=== PATIENT | female | born 1930 | race African-American/Black ===

== ENCOUNTER → 2020-07-11 | Outpatient (CLI) | payer MEDICARE ==
--- NOTE | 2020-07-11 14:21 | RAD ---
CT Abdomen and Pelvis without contrast History: Uterine bleeding Technique: Noncontrast CT imaging was performed of the abdomen and pelvis. Multiplanar images are reviewed. Exposure: One or more of the following individualized dose reduction techniques were utilized for this examination: 1. Automated exposure control 2. Adjustment of the mA and/or kV according to patient size 3. Use of iterative reconstruction technique. Comparison: None Findings: There is right extrarenal pelvis/pelviectasis. There is no renal calculus. There are some phleboliths in the pelvis, no convincing ureteral calculus. There is some linear lower lobe atelectasis at the lung bases bilaterally.Accurate evaluation of abdominal visceral organs is limited without intravenous contrast. There is no obvious abnormality of the spleen, liver, or partially fat replaced pancreas. There is no adrenal nodularity. Gallbladder is present without obvious intraluminal abnormality by CT. Accurate evaluation of bowel is limited without oral contrast. There is no significant free air, free fluid, bowel dilatation. There is scattered moderate diverticulosis of the descending and sigmoid colon. There is some retained stool variably in the colon. Appendix is not confidently identified if still present. There are multiple small nonspecific calcifications of the uterus. 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 There is moderate to severe degenerative disc disease at L1-L2 and L3-4 and to lesser degree at L4-5 and L5-S1. There is multilevel lumbar facet degenerative change, minimal grade 1 anterior spondylolisthesis L4-5. There is degenerative change of the pubic symphysis. Impression: 1. There are multiple small nonspecific uterine calcifications. 2. There is no significant inflammatory type change. There is colonic diverticulosis. 3. 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 There is multilevel lumbar degenerative disc disease. There is multilevel lumbar facet degenerative change, grade 1 anterior spondylolisthesis at L4-5. Electronically signed by: Stuart Angeles MD (07/11/2020 2:18 PM) [facility]
--- NOTE | 2020-07-11 15:46 | RAD ---
EXAMINATION: PELVIS COMPLETE, 07/11/2020 10:00 AM CLINICAL INDICATION: Abnormal vaginal bleeding TECHNIQUE: Grayscale, color and spectral Doppler ultrasound images of the pelvis . COMPARISON: None. FINDINGS: The uterus is not visualized. There is are some echogenic foci with shadowing in the expected region of the uterus. Ovaries are not visualized. Visualized portion of the cervix is unremarkable. No free fluid. IMPRESSION: Uterus not well visualized due to shadowing in the region of the uterus. Ovaries are not visualized. Cross-sectional imaging could be obtained to further evaluate if indicated. Electronically signed by: Naomie Hall MD (07/11/2020 3:43 PM) [id number]
== END ==
LOC: US 09:40
PROVIDERS: ATTEND Specialist
DX: K57.30 Diverticulosis of large intestine without perforation or abscess without bleeding (principal); N93.9 Abnormal uterine and vaginal bleeding, unspecified; J98.11 Atelectasis; M16.12 Unilateral primary osteoarthritis, left hip; M51.36 Other intervertebral disc degeneration, lumbar region; M47.816 Spondylosis without myelopathy or radiculopathy, lumbar region; M43.16 Spondylolisthesis, lumbar region; M19.09 Primary osteoarthritis, other specified site; N85.8 Other specified noninflammatory disorders of uterus
CPT/HCPCS: 74176; 76856

== ENCOUNTER → 2020-10-23 | Outpatient (CLI) | payer MEDICARE ==
--- NOTE | 2020-10-23 16:22 | RAD ---
XR HIP_LT 2-3 VIEWS, XR FEMUR_LEFT 1 VIEW 10/23/2020 11:06 AM INDICATION: Pain, no known injury COMPARISON: None available. TECHNIQUE: 2 views of the left hip and 4 views of the left femur are provided. FINDINGS/ IMPRESSION: 1. There is moderate to advanced left hip joint space narrowing with subcortical sclerosis and subcor tical cystic change along the left femur. There is marginal osteophytosis along the femur. No acute f racture or dislocation. Findings are compatible with moderate to advanced osteoarthrosis. 2. No lytic or blastic osseous lesion involving the left femur. No acute fracture or dislocation. Sup erior and inferior pubic rami are intact. Vascular calcifications are present. Degenerative changes a re noted at the left knee. Electronically signed by: Yamilet Kimble MD (10/23/2020 4:20 PM) [id number]
== END ==
LOC: DXRAD 10:45
PROVIDERS: ATTEND Specialist
DX: M16.12 Unilateral primary osteoarthritis, left hip (principal); M17.12 Unilateral primary osteoarthritis, left knee
CPT/HCPCS: 73502; 73552